=== PATIENT | male | born 1980 | race African-American/Black ===

== ENCOUNTER 2022-05-06 00:27 | Emergency (ER) | payer SELFPAY ==
[~2022-05-06] VITALS: Ht 182.9 cm; Wt 70.5 kg
[2022-05-06 01:29] VITALS: BP 139/91; PULSE 79; TEMP 97.8
== END 2022-05-06 01:29 | disposition home or self-care (01) ==
LOC: COL.ER 00:27
DX: J06.9 Acute upper respiratory infection, unspecified (principal); Z28.310 Unvaccinated for COVID-19; Z20.822 Contact with and (suspected) exposure to COVID-19

== ENCOUNTER 2023-09-21 08:40 | Emergency (ER) | payer SELFPAY ==
[~2023-09-21] VITALS: Ht 182.9 cm; Wt 68.2 kg
[2023-09-21 08:44] VITALS: TEMP 99.2
[2023-09-21] MEDS ORDERED: LR 1,000 ML IV ONE (09:00)
[2023-09-21] MEDS ORDERED: Acetaminophen 500 MG TAB PO ONE (09:00)
[2023-09-21] MEDS ORDERED: ZOFRAN ODT4 MG PO (09:10)
[2023-09-21 09:16] LABS: BASO % 0.3 % (0.0-2.0); GRAN # 5.4 K/mm3 (1.4-6.5); GRAN % 79.7 % (42.2-75.2); HEMATOCRIT 45.2 % (42.0-52.0); HEMOGLOBIN 15.1 g/dl (13.5-18.0); LYMPH # 0.7 K/mm3 (1.2-3.4); LYMPH % 10.6 % (20.0-51.0); MEAN CELL VOLUME 95 fl (80.0-100.0); MEAN CORPUSCULAR HEMOGLOBIN 32 pg (27-31); MEAN CORPUSCULAR HGB CONC 33 g/dl (33.0-37.0); MEAN PLATELET VOLUME 10.6 fl (7.4-10.4); MONO # 0.6 K/mm3 (0.1-0.6); PLATELET COUNT 152 K/mm3 (130-400); RED BLOOD COUNT 4.75 M/mm3 (4.20-5.60); REDCELL DISTRIBUTION WIDTH-CV 13.8 % (11.5-14.5)
[2023-09-21 09:27] LABS: ALBUMIN 3.9 gm/dL (3.5-5.0); BILIRUBIN,TOTAL 0.5 mg/dL (0.2-1.2); CALCIUM 9.1 mg/dL (8.4-10.2); CREATININE, serum 1.13 mg/dL (0.72-1.25); POTASSIUM 4.1 mmol/L (3.5-4.5); TOTAL PROTEIN 7.6 gm/dL (6.2-8.1)
[2023-09-21 09:39] VITALS: BP 134/93; PULSE 81
== END 2023-09-21 09:49 | disposition home or self-care (01) ==
LOC: COL.ER 08:40
PROVIDERS: Emergency Medicine
DX: R11.2 Nausea with vomiting, unspecified (principal); R19.7 Diarrhea, unspecified; F17.210 Nicotine dependence, cigarettes, uncomplicated
CPT/HCPCS: J7120

== ENCOUNTER 2024-04-04 11:18 | Emergency (ER) | payer SELFPAY ==
[~2024-04-04] VITALS: Ht 180.3 cm; Wt 77.3 kg
[~2024-04-04 11:18] MED LIST: ZOFRAN ODT4 MG PO
[2024-04-04 11:24] VITALS: BP 119/75; TEMP 98.3
[2024-04-04] MEDS ORDERED: NS 1,000 ML IV ONE (15:00)
[2024-04-04 15:19] LABS: BASO % 0.4 % (0.0-2.0); EOS # 0.2 K/mm3 (0.0-0.7); EOS % 2.4 % (0.0-4.0); GRAN # 4.8 K/mm3 (1.4-6.5); GRAN % 60.8 % (42.2-75.2); HEMOGLOBIN 16.8 g/dl (13.5-18.0); LYMPH % 25.1 % (20.0-51.0); MEAN CELL VOLUME 95 fl (80.0-100.0); MEAN CORPUSCULAR HEMOGLOBIN 32 pg (27-31); MEAN CORPUSCULAR HGB CONC 34 g/dl (33.0-37.0); MEAN PLATELET VOLUME 9.7 fl (7.4-10.4); MONO # 0.9 K/mm3 (0.1-0.6); PLATELET COUNT 185 K/mm3 (130-400); RED BLOOD COUNT 5.29 M/mm3 (4.20-5.60); REDCELL DISTRIBUTION WIDTH-CV 14.6 % (11.5-14.5)
[2024-04-04 15:25] LABS: PH 5.5 (5.0-8.5); URINE APPEARANCE CLOUDY (CLEAR/HAZY); URINE BLOOD 3+ (NEGATIVE); URINE COLOR YELLOW (YELLOW); URINE GLUCOSE NEGATIVE (NEGATIVE); URINE KETONE NEGATIVE (NEGATIVE); URINE NITRATE POSITIVE (NEGATIVE); URINE PROTEIN(semi-quant) 2+ (NEGATIVE); URINE UROBILINOGEN 0.2 E.U/dL (0.2-1.0)
[2024-04-04 15:26] LABS: INR 1.1 (0.8-3.0); PROTHROMBIN TIME 12.3 SECONDS (9.7-12.8)
[2024-04-04 15:35] LABS: COLLECTION METHOD CLEAN CATCH
[2024-04-04 15:39] LABS: ALBUMIN 4.3 g/dL (3.5-5.0); BILIRUBIN,TOTAL 0.9 mg/dL (0.2-1.2); CALCIUM 10.5 mg/dL (8.4-10.2); CREATININE, serum 1.09 mg/dL (0.72-1.25); POTASSIUM 4.6 mEq/L (3.5-4.5); TOTAL PROTEIN 8.9 g/dl (6.2-8.1)
[2024-04-04] MEDS ORDERED: PYRIDIUM 100MG100 MG PO (17:31)
[2024-04-04] MEDS ORDERED: SEPTRA DS 8001 TAB PO (17:31)
[2024-04-04 18:32] VITALS: PULSE 68
== END 2024-04-04 18:51 | disposition home or self-care (01) ==
LOC: COL.ER 11:18
PROVIDERS: Emergency Medicine
DX: N30.90 Cystitis, unspecified without hematuria (principal)
CPT/HCPCS: J7030

== ENCOUNTER 2024-04-17 12:04 | Inpatient (IN) | payer SELFPAY ==
[~2024-04-17] VITALS: Ht 180.3 cm; Wt 77.1 kg
[~2024-04-17 12:04] MED LIST changes: +PYRIDIUM 100MG100 MG PO; +SEPTRA DS 8001 TAB PO
[2024-04-17] MEDS ORDERED: NS 1,000 ML IV ONE ×2 (13:45→15:30)
[2024-04-17] MEDS ORDERED: Ondansetron 4 MG/2 ML VIAL IV ONE (14:00)
[2024-04-17 14:01] LABS: HEMATOCRIT 43.5 % (42.0-52.0); HEMOGLOBIN 14.6 g/dl (13.5-18.0); MEAN CELL VOLUME 95 fl (80.0-100.0); MEAN CORPUSCULAR HEMOGLOBIN 32 pg (27-31); MEAN CORPUSCULAR HGB CONC 34 g/dl (33.0-37.0); PLATELET COUNT 351 K/mm3 (130-400); RED BLOOD COUNT 4.59 M/mm3 (4.20-5.60); REDCELL DISTRIBUTION WIDTH-CV 14.1 % (11.5-14.5)
[2024-04-17 14:21] LABS: ALBUMIN 3.4 g/dL (3.5-5.0); CALCIUM 9.5 mg/dL (8.4-10.2); CREATININE, serum 1.31 mg/dL (0.72-1.25); POTASSIUM 3.9 mEq/L (3.5-4.5); TOTAL PROTEIN 8.8 g/dl (6.2-8.1)
[2024-04-17 14:58] LABS: COLLECTION METHOD CLEAN CATCH
[2024-04-17 14:59] LABS: BAND 1 % (0-10); LYMPHOCYTE 14 % (20.0-51.0); NEUTROPHILS 71 % (42.0-75.2); PLATELET ESTIMATE NORMAL (NORMAL)
[2024-04-17 15:11] LABS: URINE APPEARANCE CLOUDY (CLEAR/HAZY); URINE BLOOD 2+ (NEGATIVE); URINE COLOR YELLOW (YELLOW); URINE GLUCOSE NEGATIVE (NEGATIVE); URINE KETONE 2+ (NEGATIVE); URINE NITRATE POSITIVE (NEGATIVE); URINE PROTEIN(semi-quant) 1+ (NEGATIVE)
[2024-04-17] MEDS ORDERED: cefTRIAXone 1 G in Water For Injection,Sterile 10 ML IV ONE (15:15)
[2024-04-17] MEDS ORDERED: NS 1,000 ML IV SCH (17:30)
[2024-04-17] MEDS ORDERED: *Potassium Replacement Protocol MC SCH (17:30)
[2024-04-17 18:00] VITALS: BP 126/69; PULSE 103; TEMP 99.6
[2024-04-17] MEDS ORDERED: Ondansetron 4 MG/2 ML VIAL IV PRN (18:00)
[2024-04-17] MEDS ORDERED: Acetaminophen 325 MG TAB PO PRN (18:00)
--- NOTE | 2024-04-17 18:06 | NUR ---
Patient admitted to room 315 at approximately 1800. Diagnosis urosepsis. See flowsheet for VS. IVF started to LAC per MD order. Zofran administered for c/o nausea. Refuses dinner. Reports sharp pain to right side of belly button and rates it 10/10- Tylenol administered.
[2024-04-17 20:30] VITALS: BP 116/68; PULSE 100; TEMP 99.1
[2024-04-17 21:00] VITALS: BP_SYST 116
[2024-04-18] VITALS (8 sets, daily range): BP systolic 106–130; BP diastolic 69–77; PULSE 88–95; TEMP 98–98.9
--- NOTE | 2024-04-18 01:17 | NUR ---
PATIENT C/O 6/10 RT QUADRANT PAIN, NAUSEA AND IS SHIVERING. VS ARE WNL. TYLENOL AND ZOFRAN ADMINISTERED. PALPATED RT LOWER QUADRANT-DID NOT ILICIT REBOUND PAIN AND PSOAS SIGN NEGATIVE. PERCUSSED RT FLANK-PATIENT EXPERIENCED 6/10 PAIN. WILL MONITOR.
[2024-04-18 07:50] LABS: BASO % 0.2 % (0.0-2.0); EOS % 0.2 % (0.0-4.0); GRAN # 8.4 K/mm3 (1.4-6.5); GRAN % 72.2 % (42.2-75.2); HEMATOCRIT 39.4 % (42.0-52.0); HEMOGLOBIN 13.1 g/dl (13.5-18.0); LYMPH # 1.7 K/mm3 (1.2-3.4); LYMPH % 14.5 % (20.0-51.0); MEAN CELL VOLUME 95 fl (80.0-100.0); MEAN CORPUSCULAR HEMOGLOBIN 32 pg (27-31); MEAN CORPUSCULAR HGB CONC 33 g/dl (33.0-37.0); MONO # 1.5 K/mm3 (0.1-0.6); MONO % 12.5 % (1.7-9.3); PLATELET COUNT 273 K/mm3 (130-400); RED BLOOD COUNT 4.13 M/mm3 (4.20-5.60); REDCELL DISTRIBUTION WIDTH-CV 14.2 % (11.5-14.5)
[2024-04-18 08:12] LABS: ALBUMIN 2.8 g/dL (3.5-5.0); CALCIUM 8.5 mg/dL (8.4-10.2); CREATININE, serum 1.14 mg/dL (0.72-1.25); MAGNESIUM 1.9 mg/dL (1.6-2.6); PHOSPHOROUS 2.6 mg/dL (2.3-4.7)
--- NOTE | 2024-04-18 10:05 | NUR ---
PATIENT RESTING IN BED. ALERT AND ORIENTED. DENIES PAIN OR DISCOMFORT. VSS. CALL LIGHT WITHIN REACH.
--- NOTE | 2024-04-18 10:40 | NUR ---
Initial visit; Patient thanked [employer] for looking in on him and offering God's blessings and listening. [employer] will keep He in her prayers and will follow up.
[2024-04-18] MEDS ORDERED: AMOXICILLIN 8751 TAB PO (11:17)
--- NOTE | 2024-04-18 11:40 | NUR ---
THIS RN PROVIDED PATIENT WITH DISCHARGE EDUCATION AND INSTRUCTIONS. ALL QUESTIONS ANSWERED. IV TO LEFT AC DISCONTINUED. CDI.
[2024-04-18] MEDS ORDERED: cefTRIAXone 1 G in Water For Injection,Sterile 10 ML IV SCH ×2 (12:00→16:30)
--- NOTE | 2024-04-18 12:11 | NUR ---
PATIENT ESCORTED OFF UNIT VIA W/C BY ANOTHER RN AT APPROX 1200. ALL BELONGINGS WITH PATIENT.
--- NOTE | 2024-04-18 13:37 | NUR ---
Donation Worker attended clinical rounds with the team and patient is cleared for discharge today. Patient is self pay and needs assistance with affording his antibiotic. YEE requested it be sent to [employer] so a voucher could be provided to patient. YEE met with patient to discuss discharge planning. Patient stated he lives here in [place] at the "[facility]" and his Pattern Carrier is Porsha (ph#[phone]). Patient stated he also has a Flat Drier through [facility]. Patient does not have primary care and was open to having an appointment made for him at [facility]. Patient stated he has a ride home and can get to [facility] to supervisor picking crew the medication. YEE contacted [facility] and faxed voucher totaling $17.58. YEE contacted [employer] who advised patient is a part of a dual diagnosis program that is like an intensive outpatient. [facility] advised they will transport patient at time of discharge. YEE contacted [facility] and scheduled appointment for 05/16/24 at 0900. YEE provided this appointment to community outreach coordinator and faxed clinicals to [facility] per their request. Discharge Plan; Home
[2024-04-18] MEDS ORDERED: Amoxicillin/Clavulanate K+ 875/125 MG TAB PO SCH (17:00)
== END 2024-04-18 12:00 | disposition home or self-care (01) | DRG 872 ==
LOC: COL.ER 12:04 → MEDICAL 15:23
PROVIDERS: Physician Assistant; ADMIT Internal Medicine
DX: A41.51 Sepsis due to Escherichia coli [E. coli] (principal); N17.9 Acute kidney failure, unspecified; N39.0 Urinary tract infection, site not specified; N40.0 Benign prostatic hyperplasia without lower urinary tract symptoms; F17.210 Nicotine dependence, cigarettes, uncomplicated; Z91.148 Patient's other noncompliance with medication regimen for other reason
CPT/HCPCS: J0696; J2405; J7030